=== PATIENT | male | born 1975 | race Caucasian/White ===

== ENCOUNTER 2017-08-06 23:47 | Emergency (ER) | payer SELFPAY ==
[~2017-08-06] VITALS: Ht 172.7 cm; Wt 65.8 kg
[2017-08-06] MEDS ORDERED: MOTRIN 600MG.600 MG PO (23:57)
[2017-08-06] MEDS ORDERED: AMITRIPTYLINE 550 MG PO (23:58)
[2017-08-06] MEDS ORDERED: XANAX 1MG TABLET1 MG PO (23:58)
[2017-08-06] MEDS ORDERED: BUSPAR 10MG TAB10 MG PO (23:58)
[2017-08-07] LABS: HEMOGLOBIN 15.2 g/dL (14.1-18.0); LYMPH # 1.9 K/mm3 (0.7-4.5); LYMPH % 13.6 % (10-50)
--- OUTSIDE RECORDS SUMMARY | 2017-08-07 00:29 | External Medical Summary Rpt | CCD ---
Author Author DM Address Unknown Phone [email or web address] Purpose Continuity of Care Document - 08-06-2017 through 2016
--- OUTSIDE RECORDS SUMMARY | 2017-08-07 00:29 | External Medical Summary Rpt ---
Author Author DM Production, DM Production Organization DM Production Address Unknown Phone Unavailable Results Salicylates [Mass/volume] in Serum or Plasma Observa Value Referen Units Interpr Notes Date tion ce etation Range Salicylat 2.8 - mg/dL Normal No Aug 3 es 20.0 informati 2017 [Mass/vol on in ume] in source Serum or data Plasma Acetaminophen [Mass/volume] in Unspecified specimen Observa Value Referen Units Interpr Notes Date tion ce etation Range Acetamino 10 - 30 ug/mL Low No Aug 2 phen informati 2017 [Mass/vol on in 11:52 PM ume] in source Unspecifi data ed specimen Ethanol [Mass/volume] in Serum or Plasma Observa Value Referen Units Interpr Notes Date tion ce etation Range Ethanol 0 - 99 mg/dL Normal ANY Aug 2 [Mass/vol ALCOHOL > 2017 ume] in OR = 80 11:52 PM Serum or MG/DL IS Plasma CONSIDERE D LEGALLYIN TOXICATED UNDER [place] [employer] LAW. Comprehensive metabolic 2000 panel in Serum or Plasma Observa Value Referen Units Interpr Notes Date tion ce etation Range Albumin/G 1.1 - 1.8 No Normal No Aug 2 lobulin informati informati 2016 [Mass on in on in 11:52 PM ratio] in source source Serum or data data Plasma Albumin 3.4 - 5.0 gm/dL Normal No Aug 06 [Mass/vol informati 2017 ume] in on in 11:52 PM Serum or source Plasma data Alkaline 46 - 116 U/L Normal No Aug 2 phosphata informati 2017 se on in 11:52 PM [Enzymati source c data activity/ volume] in Serum or Plasma Bilirubin 0.2 - 1.0 mg/dL Normal No Aug 06 .total informati 2017 [Mass/vol on in 11:52 PM ume] in source Serum or data Plasma Urea 7 - 18 mg/dL Low No Aug 2 nitrogen informati 2017 [Mass/vol on in 11:52 PM ume] in source Serum or data Plasma Calcium 8.5 - mg/dL Normal No Nov 2 [Mass/vol 10.1 informati 2017 ume] in on in 11:52 PM Serum or source Plasma data Chloride 98 - 107 mmoL/L Low No Nov 2 [Moles/vo informati 2017 lume] in on in 11:52 PM Serum or source Plasma data Carbon 21.0 - mmoL/L Normal No Aug 2 dioxide, 32.0 informati 2017 total on in 11:52 PM [Moles/vo source lume] in data Serum or Plasma Creatinin 0.70 - mg/dL Low No Nov 2 e 1.30 informati 2017 [Mass/vol on in 11:52 PM ume] in source Serum or data Plasma Creatinin 50 - 200 ML/MIN Normal No Nov 2 e renal informati 2017 clearance on in 11:52 PM source predicted data by Cockcroft -Gault formula Estimated >60 ML/MIN No REFERENCE Nov 2 informati RANGE: 2017 glomerula on in >60 11:52 PM r source ML/MIN/1. filtratio data 73 SQUARE n rate METERSIf (GF this patient is -A merican, then multiply theresult by 1.210. Globulin 1.3 - 3.2 gm/dL High No Aug 2 [Mass/vol informati 2017 ume] in on in 11:52 PM Serum source data Glucose 74 - 106 mg/dL High No Aug 2 [Mass/vol informati 2017 ume] in on in 11:52 PM Serum or source Plasma data Potassium 3.5 - 5.1 mmoL/L Low alert Nov 2 2016 [Moles/vo CRITICAL 11:52 PM lume] in RESULTS Serum or Plasma RESU LTS CALLED TO: CC 08/07/17 0017 José'Vin Hodges Sodium 136 - 145 mmoL/L Low No Nov 2 [Moles/vo informati 2017 lume] in on in 11:52 PM Serum or source Plasma data Aspartate 15 - 37 U/L High No Nov 2 informati 2017 aminotran on in 11:52 PM sferase source [Enzymati data c activity/ volume] in Serum or Plasma Alanine 12 - 78 U/L High No Nov 2 aminotran informati 2017 sferase on in 11:52 PM [Enzymati source c data activity/ volume] in Serum or Plasma Protein 6.4 - 8.2 gm/dL Normal No Aug 2 [Mass/vol inform2016 ume] in on in 11:52 PM Serum or source Plasma data CBC W Auto Differential panel in Blood Observa Value Referen Units Interpr Notes Date tion ce etation Range Basophils 0 - 0.2 K/MM3 Normal No Aug 2 2016 [#/volume on in 11:52 PM ] in source Blood by data Automated count Basophils 0.1 - 2.0 % Normal No Nov 2 /100 inform2016 leukocyte on in 11:52 PM s in source Blood by data Automated count Eosinophi 0.0 - 0.4 K/mm3 Normal No Aug 2 ls 2016 [#/volume on in 11:52 PM ] in source Blood by data Automated count Eosinophi 0.1 - % Normal No Aug 2 ls/100 12.0 2016 leukocyte on in 11:52 PM s in source Blood by data Automated count Granulocy 1.3 - 8.0 K/mm3 High No Nov 2 angus 2016 [#/volume on in 11:52 PM ] in source Blood by data Automated count Granulocy 37.0 - % Normal No Nov 2 angus/100 80.0 2016 leukocyte on in 11:52 PM s in source Blood by data Automated count Hematocri 42.0 - % Normal No Aug 2 t [Volume 52.0 2016 on in 11:52 PM Fraction] source of Blood data Hemoglobi 14.1 - g/dL Normal No Aug 2 n 18.0 2016 [Mass/vol on in 11:52 PM ume] in source Blood data Lymphocyt 0.7 - 4.5 K/mm3 Normal No Nov 2 es 2016 [#/volume on in 11:52 PM ] in source Unspecifi data ed specimen by Automated count Lymphocyt 10 - 50 % Normal No Aug 2 es 2016 [#/volume on in 11:52 PM ] in source Unspecifi data ed specimen by Automated count Erythrocy 27 - 31.2 pg High No Nov 2 te mean inform2016 corpuscul on in 11:52 PM ar source hemoglobi data n [Entitic mass] Erythrocy 31.8 - g/dl Normal No Nov 2 te mean 35.4 2016 corpuscul on in 11:52 PM ar source hemoglobi data n concentra tion [Mass/vol ume] by Automated count Erythrocy 82.2 - fl Normal No Aug 2 te mean 97.8 2016 corpuscul on in 11:52 PM ar volume source [Entitic data volume] by Automated count Monocytes 0.1 - 1.0 K/mm3 Normal No Aug 2 2016 [#/volume on in 11:52 PM ] in source Blood by data Automated count Monocytes 1.7 - 9.3 % Normal No Aug 2 /100 2016 leukocyte on in 11:52 PM s in source Blood by data Automated count Platelet 7.4 - fl Normal No Aug 06 mean 10.4 2016 volume on in 11:52 PM [Entitic source volume] data in Blood by Automated count Platelets 142 - 424 K/mm3 Normal No Aug 2 2016 [#/volume on in 11:52 PM ] in source Blood data Erythrocy 4.6 - 6.2 M/mm3 Normal No Aug 2 angus 2016 [#/volume on in 11:52 PM ] in source Amniotic data fluid Erythrocy 11.5 - % Normal No Aug 2 te 17.5 2016 distribut on in 11:52 PM ion width source [Entitic data volume] by Automated count Leukocyte 4.8 - K/MM3 High No Aug 2 s 10.8 2016 [#/volume on in 11:52 PM ] in source Blood data
--- OUTSIDE RECORDS SUMMARY | 2017-08-07 00:29 | External Medical Summary Rpt | CCD ---
Author Author DM Address Unknown Phone Purpose Continuity of Care Document - 08-06-2017 through 2016
--- OUTSIDE RECORDS SUMMARY | 2017-08-07 00:29 | External Medical Summary Rpt | CCD ---
Demographics Preferred Language Romanian Marital Status Unknown Sabianism Affiliation Unknown Race Unknown Ethnic Group Unknown Author Author , DM CHAIDEZ Address Unknown Phone Immunization No patient found.
--- OUTSIDE RECORDS SUMMARY | 2017-08-07 00:29 | External Medical Summary Rpt ---
[...] IS Plasma CONSIDERE D LEGALLYIN TOXICATED UNDER [place] [employer] LAW. Comprehensive metabolic 2000 panel in Serum [...]
--- OUTSIDE RECORDS SUMMARY | 2017-08-07 00:29 | External Medical Summary Rpt | CCD ---
Author Author Conduent Organization Con[employer]ent Address Unknown Phone Unavailable Purpose Continuity of Care Document - through 2016
--- OUTSIDE RECORDS SUMMARY | 2017-08-07 00:29 | External Medical Summary Rpt | CCD ---
Demographics Preferred Language Korean Marital Status Unknown Zoroastrianism Affiliation Unknown Race Unknown Ethnic Group Unknown Author Author , DM CHAIDEZ Address Unknown Phone Immunization No patient found.
[2017-08-07 00:30] LABS: URINE BILIRUBIN - DIPSTICK NEGATIVE (NEG); URINE BLOOD NEGATIVE (NEG)
[2017-08-07 00:33] LABS: AMPHETAMINES/METAMPHETAMINES NEGATIVE ng/mL (<1000)
--- NOTE | 2017-08-07 00:38 | Emergency Room Report ---
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 POSITIVE FOR ETOH. MOM STATES SHE THINKS HE IS ABUSING HIS MEDICATIONS. 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 N Clinical Suspician of Infection? N Mental Status: 1 - Regular (Normal Baseline) Sepsis Risk:Possible Sepsis Risk Have you (or family members/close friends) recently traveled outside the [place]? N If Yes, where/when: Have you had exposure to infectious disease within the past month? N TB? Other? Specify: Source patient, RN notes reviewed, EMS, old records Exam Limitations no limitations Comment pt has been off his xanax for 2 days and ran out 1 week earlier and has been on etoh with hx of etoh misuse in past- tonight with possible hallucination - no trauma or fever and no street drugs reported Cardiac Chest Pain Chest pain indicative of cardiac No Timing/Duration this evening Severity moderate ALLERGIES Coded Allergies: No Known Allergies (08/06/17) Home Medications Reported Medications IBUPROFEN (Motrin 600MG) 600 MG PO Q6HP PRN PAIN Amitriptyline Hcl (Amitriptyline) 50 MG PO QHS Alprazolam (Xanax 1MG) 1 MG PO DAILY Buspirone Hcl (Buspar 10MG) 10 MG PO DAILY History Medical History General CAD? No Angina: No ID: No Hypertension? No Hyperlipidemia? No CHF? No DVT? No PE? No COPD? No Asthma? No Anemia? No GERD? No Gastric ulcers? No GI Bleed? No Hernia? No Thyroid Problems? No Hypothyroidism? No CVA? No Seizures? No Diabetes? No Renal Insuffiency? No End Stage Renal Disease? No UTI? No Stones? No BPH? No GB Disease: No Nephritic Syndrome? No Asplenia? No Hepatitis? No Sickle Cell Disease? No Arthritis? No Migraines? No Cataracts? No Glaucoma? No MRSA? No HIV? No TB? No Anxiety? Yes Depression? No Cancer? No More? No Immunization Hx DT/Tetanus Unknown Surgical Hx Previous Surgery?N Social History Smoking Hx Smoker: Current Every Day Smoker Tobacco: Yes Type Cigarettes Alcohol Alcohol: Yes Drugs none Review of Systems All Other Systems Reviewed and Negative Constitutional denies fever Eyes denies drainage ENT denies: ear discharge. Respiratory denies cough, denies shortness of breath Cardiovascular denies chest pain, denies syncope Gastrointestinal denies abdominal pain, denies diarrhea, denies vomiting Genitourinary denies: dysuria, frequency, hesitancy, hematuria. Musculoskeletal denies back pain, denies neck pain Skin denies rash Psychiatric/Neurological denies headache, denies seizure Physical Exam Vital Signs Vital Signs Date Time Temp Pulse Resp B/P Pulse O2 O2 Flow FiO2 Ox Delivery Rate 08/07 0057 99.0 117 24 166/95 96 08/07 0019 121 20 171/100 95 08/06 2350 99.5 127 20 142/100 96 - WBC >12,000 or <4,000 or 10% bands? 2 or more SIRS Criteria Met? B/P:171/100 MAP:114 Creatinine >2.0? UA output<0.5ml/kg/hr for 2 hrs? Platelet count >100,000? Lactate >2.0mmol/1? INR >1.2 or PTT > than 60 sec? Evidence of Organ Dysfunction? Provider documented clinical suspician of infection? N Sepsis Criteria Count: 2 Sepsis Risk: Possible Sepsis Risk General Appearance no apparent distress Eye Exam - bilateral eye PERRL, bilateral eye EOMI Ear, Nose, Throat normal ENT inspection Neck supple Respiratory Status No: respiratory distress. Lung Sounds bilateral: lungs clear. 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 No Results/Orders Laboratory Tests 08/07/17 0000: Salicylates 6.6 08/06/17 2352: Sodium 133 L, Potassium 2.6 *L, Chloride 95 L, Carbon Dioxide 23, BUN 5 L, Creatinine 0.7 L, Estimated Creat Clear 125, Estimated GFR (MDRD) 123, Glucose 110 H, Calcium 8.9, Total Bilirubin 0.3, AST 217 H, ALT 195 H, Alkaline Phosphatase 71, Total Protein 7.3, Albumin 3.9, Globulin 3.4 H, Albumin/ Globulin Ratio 1.1, WBC 13.6 H, RBC 4.81, Hgb 15.2, Hct 44.7, MCV 92.9, RDW 13.4, Plt Count 245, MPV 7.5, Gran % 77.0, Gran # 10.5 H, Lymphocytes % 13.6, Monocytes % 6.8, Eosinophils % 2.3, Basophils % 0.3, Lymphocytes # 1.9, Monocytes # 0.9, Eosinophils # 0.3, Basophils # 0.1, PUBS MCHC 34.1, MCH 31.7 H , Acetaminophen 1.5 L, Alcohols 22 08/06/17 0026: Opiates Screen NEGATIVE, Urine Methadone Screen NEGATIVE, Barbiturates NEGATIVE, Phencyclidine Screen NEGATIVE, Amphetamines Screen NEGATIVE, Benzodiazepines Screen NEGATIVE, Cocaine Screen NEGATIVE, Marijuana (THC) Screen NEGATIVE, Urine Color YELLOW, Urine Appearance CLEAR, Urine pH 6.0, Ur Specific [place] <= 1.005 , Urine Protein NEGATIVE, Urine Ketones NEGATIVE, Urine Blood NEGATIVE, Urine Nitrate NEGATIVE, Urine Bilirubin NEGATIVE, Urine Urobilinogen 0.2, Ur Leukocyte Esterase NEGATIVE, Urine RBC NONE, Urine WBC OCC, Ur Squamous Epith Cells NONE, Urine Bacteria NONE, Urine Glucose NEGATIVE Current Medication Orders Sig/Eron Start time Last Medication Dose Route Stop Time Status Admin Clonidine HCl 0.1 MG ONCE ONE 08/07 200 AC PO 08/07 201 Lorazepam 0.5 MG ONCE ONE 08/07 200 AC IV 08/07 201 Potassium Chloride 40 MEQ ONCE ONE 08/07 200 AC PO 08/07 201 Sodium Chloride 1,000 ML .Q1H1M 08/07 100 AC 08/07 IV 08/07 200 005 Sodium Chloride 10 ML PRN PRN 08/07 100 AC IV 08/08 005 Sodium Chloride 1,000 ML .STK-MED ONE 08/07 51 DC IV Orders Procedure Date/time Status SALICYLATE 08/07 0000 Complete IV SALINE LOCK 08/06 235 Active URINALYSIS/COMPLETE 08/06 235 Complete DRUG ABUSE SCREEN (TRIAGE) 08/06 2353 Complete CBC WITH AUTO DIFF 08/06 2353 Complete CHEM 12 PROFILE 08/06 2353 Complete ALCOHOL 08/06 2353 Complete Acetaminophen 08/06 2353 Complete Departure Departure Time of Disposition 013 Disposition DC Home or Self Care(routine) Clinical Impression Primary Impression: Medication withdrawal Qualifiers: Substance type: sedative, hypnotic or anxiolytic Qualified Code: F13.239 - Sedative, hypnotic or anxiolytic dependence with withdrawal, unspecified Secondary Impressions: Hypokalemia Condition STABLE Referrals DANNIELLE MAST (Family) Patient Instructions DI for Drug or Alcohol Withdrawal Additional Instructions will need to call pcp this am and Discharge Counseling Counseled pt/family regarding diagnosis, test results, follow up needs, alcohol counseling,> 3min ED Critical Care Critical Care No Comments will go home with family tonight at 0153
[2017-08-07 02:08] VITALS: BP 161/88
== END 2017-08-07 02:09 | disposition home or self-care (01) ==
LOC: ER 23:47
PROVIDERS: Emergency Medicine
DX: F13.239 Sedative, hypnotic or anxiolytic dependence with withdrawal, unspecified (principal); E87.6 Hypokalemia; F17.210 Nicotine dependence, cigarettes, uncomplicated; F10.10 Alcohol abuse, uncomplicated